=== PATIENT | female | born 1955 | race Two or more races ===

== ENCOUNTER 2024-11-15 11:24 | Emergency (ER) | payer OTHER ==
[~2024-11-15] VITALS: Ht 167.6 cm; Wt 81.6 kg
[2024-11-15] MEDS ORDERED: CEFTRIAXONE SODIUM 1,000 MG VIAL ONE (13:15)
[2024-11-15] MEDS ORDERED: CEFTRIAXONE SODIUM 1,000 MG VIAL IM ONE (13:15)
== END 2024-11-15 14:44 | disposition home or self-care (01) ==
LOC: ER 11:24
DX: S50.811A Abrasion of right forearm, initial encounter (principal); X58.XXXA Exposure to other specified factors, initial encounter; Y93.89 Activity, other specified; Y92.012 Bathroom of single-family (private) house as the place of occurrence of the external cause; Y99.9 Unspecified external cause status; Z87.09 Personal history of other diseases of the respiratory system

== ENCOUNTER 2024-12-28 07:25 | Outpatient (CLI) | payer OTHER | END 2024-12-28 07:26 | disposition home or self-care (01) | LOC: NUCLEAR 07:25 | PROVIDERS: ATTEND Internal Medicine Cardiovascular Disease | DX: I20.0 Unstable angina (principal) ==

== ENCOUNTER 2025-01-18 12:03 | Inpatient (IN) | payer OTHER ==
[~2025-01-18] VITALS: Ht 167.6 cm; Wt 84.4 kg
[2025-01-18] MEDS ORDERED: MULTIPLE VITAM1 EAC2 PO (12:32)
[2025-01-18] MEDS ORDERED: ROSUVASTATIN CA10 MG PO (12:32)
[2025-01-28] MEDS ORDERED: LIDOCAINE HCL 1%/EPINEPHRINE 20ML VIAL IJ ONE (08:15)
[2025-01-28] MEDS ORDERED: METRONIDAZOLE/SODIUM CHLORIDE 500 MG/100 ML PIGGYBACK IV ONE (08:15)
[2025-01-28] MEDS ORDERED: CEFTRIAXONE SODIUM 2,000 MG VIAL IV ONE (08:15)
[2025-01-28] MEDS ORDERED: BUPIVACAINE HCL 30 ML VIAL IJ ONE (08:15)
[2025-01-28] MEDS ORDERED: ONDANSETRON HCL 2 MG/ML VIAL IV PRN (10:00)
[2025-01-28] MEDS ORDERED: OxyCODONE HCL 5 MG TABLET (ROXICODONE) PO PRN (10:00)
[2025-01-28] MEDS ORDERED: MORPHINE SULFATE 4 MG/ML VIAL IV PRN (10:00)
[2025-01-28] MEDS ORDERED: 0.9 % SODIUM CHLORIDE 1,000 ML IV SCH (10:00)
[2025-01-28] MEDS ORDERED: DEXTROSE 50 % IN WATER 0.5 G/ML DISP.SYRIN IV PRN (10:00)
[2025-01-28 11:41] LABS: BASO % 0.1 % (0.1-1.2); EOS # 0.07 (0.04-0.54); EOS % 0.8 % (0.7-7.0); LYMPH # 1.22 (1.18-3.74); LYMPH % 14.6 % (19.3-53.1); MEAN PLATELET VOLUME 10.60 fl (9.4-12.4); MONO # 0.58 (0.24-0.82); MONO % 6.9 % (4.7-12.5); NEUT # 6.45 (1.56-6.13); NEUT % 77.4 % (34.0-71.1); RED CELL DISTRIBUTION WIDTH 13.9 % (11.6-14.4)
[2025-01-28 12:28] LABS: BUN CREA RATIO 15.0 (7.0-25.0); CREATININE SERUM 1.0 mg/dL (0.55-1.02); GFR 54.81; GLUCOSE FASTING 138.0 mg/dL (65-100); OSMOLALITY SERUM 284.0 MOSM/KG (275-295)
[2025-01-28] MEDS ORDERED: HYOSCYAMINE SULFATE 0.125 MG TAB.SUBL SL SCH (13:00)
[2025-01-28] MEDS ORDERED: ENALAPRILAT DIHYDRATE 1.25 MG/ML VIAL IV PRN (13:30)
[2025-01-28] MEDS ORDERED: ACETAMINOPHEN 500 MG GEL..CAP PO SCH (14:00)
[2025-01-28] MEDS ORDERED: GABAPENTIN 300 MG CAPSULE PO SCH (17:00)
[2025-01-28] MEDS ORDERED: METRONIDAZOLE/SODIUM CHLORIDE 500 MG/100 ML PIGGYBACK IV SCH (17:00)
[2025-01-28 17:07] VITALS: BP 153/85; O2SAT 97
[2025-01-28] MEDS ORDERED: FAMOTIDINE/PF 20 MG/2 ML VIAL IV PUSH SCH (21:00)
[2025-01-28] MEDS ORDERED: CELECOXIB 200 MG CAPSULE PO SCH (21:00)
[2025-01-29 01:11] VITALS: BP 143/82; O2SAT 98
[2025-01-29 07:30] VITALS: BP 123/71; O2SAT 96
[2025-01-29 07:33] LABS: BASO % 0.1 % (0.1-1.2); EOS # 0.03 (0.04-0.54); EOS % 0.3 % (0.7-7.0); LYMPH # 2.16 (1.18-3.74); LYMPH % 20.5 % (19.3-53.1); MEAN PLATELET VOLUME 10.90 fl (9.4-12.4); MONO # 0.98 (0.24-0.82); MONO % 9.3 % (4.7-12.5); NEUT # 7.33 (1.56-6.13); NEUT % 69.4 % (34.0-71.1); RED CELL DISTRIBUTION WIDTH 13.8 % (11.6-14.4)
[2025-01-29 08:18] LABS: BUN CREA RATIO 12.0 (7.0-25.0); CREATININE SERUM 0.93 mg/dL (0.55-1.02); GFR 59.6; GLUCOSE FASTING 73.0 mg/dL (65-100); OSMOLALITY SERUM 281.0 MOSM/KG (275-295)
[2025-01-29] MEDS ORDERED: ENOXAPARIN SODIUM 40 MG/0.4 ML SYRINGE SUBCUTANEO SCH (17:00)
[2025-01-29] MEDS ORDERED: ROSUVASTATIN CALCIUM 10 MG TABLET PO SCH (17:00)
[2025-01-29 18:28] VITALS: BP 115/75; O2SAT 95
[2025-01-30 00:30] VITALS: BP 138/75; O2SAT 97
[2025-01-30 08:00] VITALS: BP 139/77; O2SAT 96
[2025-01-30] MEDS ORDERED: ENOXAPARIN SODIUM 40 MG/0.4 ML SYRINGE SUBCUTANEO SCH (09:00)
[2025-01-30 15:00] VITALS: BP 136/85; O2SAT 96
[2025-01-31 01:55] VITALS: BP 155/85; O2SAT 99
[2025-01-31 08:00] VITALS: BP 147/90; O2SAT 97
[2025-01-31] MEDS ORDERED: NEURONTIN300 MG PO (15:02)
[2025-01-31] MEDS ORDERED: TYLENOL ARTHRI650 MG PO (15:02)
[2025-01-31] MEDS ORDERED: INTESTINEX680 M1 PO (15:02)
== END 2025-01-31 19:00 | disposition home or self-care (01) | DRG 331 ==
LOC: SURH 01-28 09:00 → O/R 01-28 09:00 → SURH 01-28 12:45
PROVIDERS: ADMIT Surgery; ATTEND Surgery
PROC: 0DBP4ZZ Excision of Rectum, Percutaneous Endoscopic Approach (ICD-10-PCS; 2025-01-28)
PROC: 0DJD8ZZ Inspection of Lower Intestinal Tract, Via Natural or Artificial Opening Endoscopic (ICD-10-PCS; 2025-01-28)
PROC: 0DTN4ZZ Resection of Sigmoid Colon, Percutaneous Endoscopic Approach (ICD-10-PCS; principal; 2025-01-28 13:45)
DX: K57.20 Diverticulitis of large intestine with perforation and abscess without bleeding (principal)